=== PATIENT | female | born 1940 | race Caucasian/White ===

== ENCOUNTER 2019-03-27 12:21 | Inpatient (IN) | payer MEDICARE ==
[~2019-03-27] VITALS: Ht 157.5 cm; Wt 97.4 kg
[2019-03-28 14:00] VITALS: BP 109/69
== END 2019-03-28 18:22 | disposition home health service (06) | DRG 70 ==
LOC: ED 14:55 → 4EST 15:20
PROVIDERS: ADMIT Family Medicine; ATTEND Family Medicine
PROC: 0T9B70Z Drainage of Bladder with Drainage Device, Via Natural or Artificial Opening (ICD-10-PCS; principal; 2019-03-27)
DX: G93.41 Metabolic encephalopathy (principal); J96.00 Acute respiratory failure, unspecified whether with hypoxia or hypercapnia; N39.0 Urinary tract infection, site not specified; D68.69 Other thrombophilia; J98.11 Atelectasis; E03.9 Hypothyroidism, unspecified; E83.42 Hypomagnesemia; F41.9 Anxiety disorder, unspecified; I48.2 Chronic atrial fibrillation; I50.9 Heart failure, unspecified; J44.9 Chronic obstructive pulmonary disease, unspecified; K44.9 Diaphragmatic hernia without obstruction or gangrene; Z79.02 Long term (current) use of antithrombotics/antiplatelets; Z82.5 Family history of asthma and other chronic lower respiratory diseases; Z87.891 Personal history of nicotine dependence; Z99.81 Dependence on supplemental oxygen; Z90.49 Acquired absence of other specified parts of digestive tract
CPT/HCPCS: 36415; 70450; 71045; 71275; 80053; 80307; 81001; 82010; 82140; 82607; 82800; 83605; 83735; 83880; 84100; 84145; 84443; 84484; 85025; 85610; 85651; 87040; 87086; 93005; 94640; 96365; 96375; 99291; G0378; J7620; J2060; J3475